=== PATIENT | female | born 1955 | race Caucasian/White ===

== ENCOUNTER 2019-01-07 13:21 | Emergency (ER) | payer MEDICARE, MEDICAID ==
[~2019-01-07] VITALS: Ht 172.7 cm; Wt 73.5 kg
[~2019-01-07 13:21] MED LIST: IBUP-1958 PO; SERT25TA PO; TRAZ-182 PO
[2019-01-07 13:31] VITALS: BP 111/72
--- NOTE | 2019-01-07 13:44 | NUR ---
SEEN AND EXAMINED BY SAGAR VALERO
[2019-01-07] MEDS ORDERED: diphenhydrAMINE HCL 50 MG/ML VIAL ONE (13:51)
[2019-01-07] MEDS ORDERED: FAMOTIDINE (20 MG) 20 MG TABLET ONE (13:51)
[2019-01-07] MEDS ORDERED: predniSONE 20 MG TABLET ONE (13:52)
[2019-01-07] MEDS ORDERED: predniSONE 20 MG TABLET PO ONE (14:00)
[2019-01-07] MEDS ORDERED: FAMOTIDINE (20 MG) 20 MG TABLET PO ONE (14:00)
[2019-01-07] MEDS ORDERED: diphenhydrAMINE HCL 50 MG/ML VIAL IM ONE (14:00)
== END 2019-01-07 14:23 | disposition home or self-care (01) ==
LOC: ER 13:29
DX: L50.0 Allergic urticaria (principal); F17.200 Nicotine dependence, unspecified, uncomplicated; Z91.030 Bee allergy status
CPT/HCPCS: 96372; 99283; J1200; J7512